=== PATIENT | female | born 1955 | race Caucasian/White ===

== ENCOUNTER 2019-01-14 12:04 | Emergency (ER) | payer OTHER ==
[~2019-01-14] VITALS: Ht 157.5 cm; Wt 86.2 kg
[~2019-01-14 12:04] MED LIST: DULO30CA51 PO; LEVO500T75 PO; LORA2TAB95 PO; lisinopril; synthroid
[2019-01-14 12:13] VITALS: BP 128/68
--- NOTE | 2019-01-14 12:35 | NUR ---
SEEN AND EXAMINED BY DR. HOPKINS.
--- NOTE | 2019-01-14 12:41 | NUR ---
GAVE PT ICE PACK
--- NOTE | 2019-01-14 13:45 | NUR ---
PT IS TAKEN TO CT SCAN.
--- NOTE | 2019-01-14 14:10 | NUR ---
Patient discharged to home in stable condition. Written and verbal after care instructions given. Patient verbalizes understanding of instruction.
== END 2019-01-14 14:13 | disposition home or self-care (01) ==
LOC: ER 12:15
DX: S00.03XA Contusion of scalp, initial encounter (principal); I10 Essential (primary) hypertension; F32.9 Major depressive disorder, single episode, unspecified; F41.9 Anxiety disorder, unspecified; E07.9 Disorder of thyroid, unspecified; Z79.899 Other long term (current) drug therapy; W18.39XA Other fall on same level, initial encounter; Y93.89 Activity, other specified; Y92.89 Other specified places as the place of occurrence of the external cause; Y99.8 Other external cause status
CPT/HCPCS: 70450-TC

== ENCOUNTER 2020-06-30 13:02 | Emergency (ER) | payer MEDICARE, OTHER ==
[~2020-06-30] VITALS: Ht 157.5 cm; Wt 81.6 kg
[~2020-06-30 13:02] MED LIST changes: -DULO30CA51 PO; +DULO30CA52 PO; +LEVO500T23 PO; -LEVO500T75 PO
--- NOTE | 2020-06-30 13:10 | NUR ---
Patient came in to the er c/o pain/swelling/bruise to left wrist/right knee and left foot, s/p slipped and fall yesterday. On room air, breathing evenly and unlabored. connected to the monitor and pulse ox. kept comfortable, will continue to monitor accordingly.
[2020-06-30 15:13] VITALS: BP 129/67
--- NOTE | 2020-06-30 15:14 | NUR ---
Patient does not wish to proceed with medical care recommended by Dr. Stockton. Patient given information related to possible complications, up to and including , which could occur as a result of leaving the hospital at this time. Patient verbalizes understanding of risks involved due to leaving against medical advice. Patient has signed AMA form.
== END 2020-06-30 15:14 | disposition left against medical advice (07) ==
LOC: ER 13:12
DX: Z53.21 Procedure and treatment not carried out due to patient leaving prior to being seen by health care provider (principal); M25.561 Pain in right knee; R22.41 Localized swelling, mass and lump, right lower limb; W01.0XXA Fall on same level from slipping, tripping and stumbling without subsequent striking against object, initial encounter; Y93.89 Activity, other specified; Y92.89 Other specified places as the place of occurrence of the external cause; Y99.8 Other external cause status
CPT/HCPCS: 73564-TC

== ENCOUNTER 2022-02-14 17:31 | Emergency (ER) | payer MEDICARE ==
[~2022-02-14] VITALS: Ht 157.5 cm; Wt 68.0 kg
--- NOTE | 2022-02-14 17:45 | NUR ---
BIB SELF C/O ITCHING ALL OVER BODY AFTER TAKING IBUPROFEN. AMBULATORY, AAOX4, NOT IN RESPIRATORY DISTRESS WITH VISIBLE REDNESS TO BOTH ARMS.
--- NOTE | 2022-02-14 17:47 | NUR ---
ON BED SIDE
[2022-02-14] MEDS ORDERED: diphenhydrAMINE HCL 25 MG CAPSULE ONE (17:59)
[2022-02-14] MEDS ORDERED: methylPREDNISolone SOD SUCC 125 MG/2ML VIAL ONE (17:59)
[2022-02-14] MEDS ORDERED: FAMOTIDINE (20 MG) 20 MG TABLET ONE (18:00)
[2022-02-14] MEDS ORDERED: diphenhydrAMINE HCL 25 MG CAPSULE PO ONE (18:00)
[2022-02-14] MEDS ORDERED: methylPREDNISolone SOD SUCC 125 MG/2ML VIAL IM ONE (18:00)
[2022-02-14] MEDS ORDERED: FAMOTIDINE (20 MG) 20 MG TABLET PO ONE (18:00)
[2022-02-14] MEDS ORDERED: FAMO-131 PO (18:23)
[2022-02-14] MEDS ORDERED: PRED50TA PO (18:23)
[2022-02-14] MEDS ORDERED: DIPH25CA83 PO (18:23)
--- NOTE | 2022-02-14 18:31 | NUR ---
Patient discharged to home in stable condition. Written and verbal after care instructions given. Patient verbalizes understanding of instruction.
[2022-02-14 18:33] VITALS: BP 122/88
== END 2022-02-14 18:38 | disposition home or self-care (01) ==
LOC: ER 17:36
DX: L50.9 Urticaria, unspecified (principal); I10 Essential (primary) hypertension; Z88.0 Allergy status to penicillin; Z60.2 Problems related to living alone; Z79.52 Long term (current) use of systemic steroids; Z79.899 Other long term (current) drug therapy
CPT/HCPCS: 96372; 99283; J2930; Q0163